=== PATIENT | female | born 1940 | race Caucasian/White ===

== ENCOUNTER 2017-11-29 12:54 | Emergency (ER) | payer MEDICARE, BC ==
--- NOTE | 2017-11-29 13:39 | EDM.PDOC ---
ED HPI GENERAL MEDICAL PROBLEM - General Stated Complaint: RIGHT ARM PAIN Time Seen by Provider: 11/29/17 12:54 Source of Information: Reports: Patient, Family History Limitations: Reports: Altered Mental Status - History of Present Illness INITIAL COMMENTS - FREE TEXT/NARRATIVE: 77 y.o.w.f with H/O Alzheimer dementia, came to the ed due to r and left off and on arm pain. Pt has FROM of all her extremities and does no t specfically say she has pain. Pt's daughters were called to take the pt to the ed for evaluation. Pt does not tappers to be in any discomfort. BP 156/61 Pulse 73 RR 18 Pulse ox 98% on RA Tamp 36.4 Onset Date: 11/29/17 Onset Time: 09:00 Duration: Hour(s): Location: Reports: Upper Extremity, Left, Upper Extremity, Right Quality: Reports: Ache, Burning Severity: Mild Improves with: Reports: Rest - Related Data Allergies Allergy/AdvReac Type Severity Reaction Status Date / Time Sulfa (Sulfonamide Allergy Itching Verified 11/29/17 13:43 Antibiotics) Home Meds: Home Meds Aspirin [Low Dose Aspirin EC] 81 mg PO DAILY 04/09/15 [History] Donepezil [Aricept] 5 mg PO BEDTIME 04/09/15 [History] Gluc 2KCl/Chondr/Yoshi Hy/Hy Ac [Glucosamine & Chondroitin Cap] 1 cap PO DAILY [History] Hydrochlorothiazide 25 mg PO DAILY 04/09/15 [History] Loratadine [Claritin] 10 mg PO DAILY 04/09/15 [History] Losartan Potassium [Cozaar] 50 mg PO BID 04/09/15 [History] Multivitamin [Multivitamins] 1 tab PO DAILY 04/09/15 [History] Bradford-3 Fatty Acids [Fish Oil] 500 mg PO DAILY 04/09/15 [History] Sertraline [Zoloft] 75 mg PO DAILY 04/09/15 [History] amLODIPine [Norvasc] 2.5 mg PO BID 04/09/15 [History] Acetaminophen [Tylenol Extra Strength] 500 mg PO TID 10/03/16 [History] Fluticasone/Salmeterol [Advair 250-50 Diskus] 1 each IH DAILY 10/03/16 [History] Melatonin 1 mg PO DAILY 10/03/16 [History] Vitamin B Complex 1 each PO DAILY 10/03/16 [History] Ciprofloxacin HCl [Cipro] 500 mg PO BID #20 tablet 11/29/17 [Rx] Past Medical History Other Oncologic History: skin CA on vulva - Past Surgical History Other Female Surgeries/Procedures: skin CA removed from vulva Social & Family History - Tobacco Use Smoking Status *Q: Never Smoker Second Hand Smoke Exposure: No - Caffeine Use Caffeine Use: Reports: Coffee - Alcohol Use Days Per Week of Alcohol Use: 0 - Recreational Drug Use Recreational Drug Use: No - Living Situation & Occupation Living situation: Reports: ED ROS GENERAL - Review of Systems Review Of Systems: Unable To Obtain (H/O alzheimer's dementia) ED EXAM, GENERAL - Physical Exam Exam: See Below Exam Limited By: Altered Mental Status General Appearance: Alert, WD/WN, No Apparent Distress Eye Exam: Bilateral Eye: Normal Inspection Ears: Normal External Exam, Normal Canal Ear Exam: Bilateral Ear: Auricle Normal Nose: Normal Inspection, Normal Mucosa Throat/Mouth: Normal Inspection, Normal Lips Head: Atraumatic, Normocephalic Neck: Normal Inspection, Supple, Non-Tender Respiratory/Chest: No Respiratory Distress, Lungs Clear, Normal Breath Sounds, No Accessory Muscle Use Cardiovascular: Normal Peripheral Pulses, Regular Rate, Rhythm, No Edema, No Gallop Peripheral Pulses: 1+: Radial (R) GI/Abdominal: Normal Bowel Sounds, Soft, Non-Tender (Female) Exam: Deferred Rectal (Female) Exam: Deferred Back Exam: Normal Inspection, Full Range of Motion Extremities: Normal Inspection, Normal Range of Motion, Non-Tender, No Pedal Edema Neurological: Alert, CN II-XII Intact, Abnormal Gait (walks slowly but independent ) Psychiatric: Normal Affect, Depressed Mood Skin Exam: Warm, Dry, Intact, Normal Color, No Rash Lymphatic: No Adenopathy EKG INTERPRETATION EKG Date: 11/29/17 Time: 13:45 Rhythm: NSR Rate (Beats/Min): 65 [place]: LAD-Left [place] Deviation P-Wave: Present QRS: Normal ST-T: Normal QT: Normal Comparison: No Change Course - Vital Signs Text/Narrative:: 77 y.o.w.f with H/O Alzheimer dementia, came to the ed due to r and left off and on arm pain. Pt has FROM of all her extremities and does no t specfically say she has pain. Pt's daughters were called to take the pt to the ed for evaluation. Pt does not tappers to be in any discomfort. BP 156/61 Pulse 73 RR 18 Pulse ox 98% on RA Temp 36.4 PE: WNWD W F with dementia Labs: NL WBC K 3.2 Na 143 GFR > 60 Cr 0.7 BUN 15 Impression: Hypokalemia, UTI, Dehydration Tx: Potassium, Cipro UCx is pending Reexam: improved Plan: D/c with instructions Last Recorded V/S: Last Vital Signs Temp 36.4 C 11/29/17 12:54 Pulse 69 11/29/17 15:23 Resp 18 11/29/17 15:23 BP 155/61 H 11/29/17 15:23 Pulse Ox 99 11/29/17 15:23 - Orders/Labs/Meds Orders: Active Orders 24 hr Category Date Time Status EKG Documentation Completion [RC] ASDIRECTED Care 11/29/17 13:38 Active CULTURE URINE [RM] Stat Lab 11/29/17 14:49 Ordered EKG 12 Lead [EK] Routine Ther 11/29/17 13:37 Ordered Labs: Laboratory Tests 11/29/17 11/29/17 11/29/17 Range/Units 13:35 13:35 13:35 WBC 5.4 (4.5-12.0) X10-3/uL RBC 4.07 (3.23-5.20) x10(6)uL Hgb 12.9 (11.5-15.5) g/dL Hct 38.0 (30.0-51.3) % MCV 93.4 (80-96) fL MCH 31.7 (27.7-33.6) pg MCHC 33.9 (32.2-35.4) g/dL RDW 12.6 (11.5-15.5) % Plt Count 305 (125-369) X10(3)uL MPV 7.3 L (7.4-10.4) fL Neut % (Auto) 59.1 (46-82) % Lymph % (Auto) 30.4 (13-37) % [place] % (Auto) 8.2 (4-12) % Eos % (Auto) 2 (1.0-5.0) % Baso % (Auto) 1 (0-2) % Neut # (Auto) 3.3 (1.6-8.3) # Lymph # (Auto) 1.6 (0.6-5.0) # [place] # (Auto) 0.4 (0.0-1.3) # Eos # (Auto) 0.1 (0.0-0.8) # Baso # (Auto) 0.0 (0.0-0.2) # PT 10.7 (8.7-11.1) INR 1.06 (0.89-1.13) Sodium 143 (135-145) mmol/L Potassium 3.2 L (3.5-5.3) mmol/L Chloride 103 (100-110) mmol/L Carbon Dioxide 31 (21-32) mmol/L BUN 15 (7-18) mg/dL Creatinine 0.7 (0.55-1.02) mg/dL Est Cr Clr Drug Dosing TNP Estimated GFR (MDRD) > 60 (>60) BUN/Creatinine Ratio 21.4 H (9-20) Glucose 116 (80-116) mg/dL Calcium 9.6 (8.6-10.2) mg/dL Troponin I (<0.017-0.056) ng/mL Urine Color (YELLOW) Urine Appearance (CLEAR) Urine pH (5.0-6.5) Ur Specific [place] (1.010-1.025) Urine Protein (NEGATIVE) mg/dL Urine Glucose (UA) (NEGATIVE) mg/dL Urine Ketones (NEGATIVE) mg/dL Urine Occult Blood (NEGATIVE) Urine Nitrite (NEGATIVE) Urine Bilirubin (NEGATIVE) Urine Urobilinogen (NEGATIVE) mg/dL Ur Leukocyte Esterase (NEGATIVE) Urine RBC (0) Urine WBC (0) Ur Squamous Epith Cells (NS,R,O) Urine Bacteria (NS) 11/29/17 11/29/17 Range/Units 13:35 14:30 WBC (4.5-12.0) X10-3/uL RBC (3.23-5.20) x10(6)uL Hgb (11.5-15.5) g/dL Hct (30.0-51.3) % MCV (80-96) fL MCH (27.7-33.6) pg MCHC (32.2-35.4) g/dL RDW (11.5-15.5) % Plt Count (125-369) X10(3)uL MPV (7.4-10.4) fL Neut % (Auto) (46-82) % Lymph % (Auto) (13-37) % [place] % (Auto) (4-12) % Eos % (Auto) (1.0-5.0) % Baso % (Auto) (0-2) % Neut # (Auto) (1.6-8.3) # Lymph # (Auto) (0.6-5.0) # [place] # (Auto) (0.0-1.3) # Eos # (Auto) (0.0-0.8) # Baso # (Auto) (0.0-0.2) # PT (8.7-11.1) INR (0.89-1.13) Sodium (135-145) mmol/L Potassium (3.5-5.3) mmol/L Chloride (100-110) mmol/L Carbon Dioxide (21-32) mmol/L BUN (7-18) mg/dL Creatinine (0.55-1.02) mg/dL Est Cr Clr Drug Dosing Estimated GFR (MDRD) (>60) BUN/Creatinine Ratio (9-20) Glucose (80-116) mg/dL Calcium (8.6-10.2) mg/dL Troponin I < 0.017 L (<0.017-0.056) ng/mL Urine Color Yellow (YELLOW) Urine Appearance Clear (CLEAR) Urine pH 6.0 (5.0-6.5) Ur Specific [place] 1.015 (1.010-1.025) Urine Protein Negative (NEGATIVE) mg/dL Urine Glucose (UA) Normal (NEGATIVE) mg/dL Urine Ketones Negative (NEGATIVE) mg/dL Urine Occult Blood Negative (NEGATIVE) Urine Nitrite Negative (NEGATIVE) Urine Bilirubin Negative (NEGATIVE) Urine Urobilinogen Normal (NEGATIVE) mg/dL Ur Leukocyte Esterase Large H (NEGATIVE) Urine RBC 0-5 (0) Urine WBC 10-20 H (0) Ur Squamous Epith Cells Occasional (NS,R,O) Urine Bacteria Few H (NS) Meds: Medications Discontinued Medications Generic Name Dose Route Start Last Admin Trade Name Freq PRN Reason Stop Dose Admin Ciprofloxacin 500 mg 11/29/17 14:55 11/29/17 15:04 Ciprofloxacin Hcl PO 11/29/17 14:56 500 mg ONETIME STA Administration Potassium Chloride 40 meq 11/29/17 14:23 11/29/17 15:04 Klor-Con M20 PO 11/29/17 14:24 40 meq ONETIME ONE Administration Departure - Departure Time of Disposition: 14:59 Disposition: Home, Self-Care 01 Condition: Good Clinical Impression: Hypokalemia UTI (urinary tract infection) Qualifiers: Urinary tract infection type: acute cystitis Hematuria presence: without hematuria Qualified Code(s): N30.00 - Acute cystitis without hematuria Prescriptions: Ciprofloxacin HCl [Cipro] 500 mg PO BID #20 tablet Instructions: Hypokalemia, Urinary Tract Infection, Adult Referrals: Jordan Arrington MD [Primary Care Provider] - Forms: ED Department Discharge Additional Instructions: Please take cipro as recommended, please increase water intake. Potassium level check in 3 days. Please f/u, come back if your symptoms are getting worse. - My Orders Last 24 Hours: My Active Orders 11/29/17 13:37 EKG 12 Lead [EK] Routine 11/29/17 13:38 EKG Documentation Completion [RC] ASDIRECTED 11/29/17 14:49 CULTURE URINE [RM] Stat - Assessment/Plan Last 24 Hours: My Active Orders 11/29/17 13:37 EKG 12 Lead [EK] Routine 11/29/17 13:38 EKG Documentation Completion [RC] ASDIRECTED 11/29/17 14:49 CULTURE URINE [RM] Stat
[2017-11-29] MEDS ORDERED: Potassium Chloride 20 MEQ Tab.ER PO ONE (14:23)
[2017-11-29] MEDS ORDERED: Ciprofloxacin 500 MG Tab PO STA (14:55)
[2017-11-29 15:24] VITALS: BP 155/61
== END 2017-11-29 15:23 | disposition home or self-care (01) ==
LOC: FB.ED 12:54
DX: E87.6 Hypokalemia (principal); E86.0 Dehydration; N30.00 Acute cystitis without hematuria; Z79.82 Long term (current) use of aspirin; Z79.899 Other long term (current) drug therapy; Z88.2 Allergy status to sulfonamides
CPT/HCPCS: 36415; 80048; 81001; 84484; 85025; 85610; 87086; 93005; 99284; A9270; 93010

== ENCOUNTER 2018-02-28 11:51 | Emergency (ER) | payer MEDICARE, BC ==
[2018-02-28] MEDS ORDERED: Sodium Chloride 0.9% 1,000 ML IV ONE (13:13)
[2018-02-28] MEDS ORDERED: Potassium Chloride 10% 20 MEQ/15 ML Soln 15 ML UD Cup PO ONE (13:14)
[2018-02-28 15:19] VITALS: BP 122/51
--- NOTE | 2018-03-01 05:24 | ER ---
DATE SEEN: 02/28/2018 TIME SEEN: The patient was seen at 1200 hours. /[id number] RAVIN/HAMLET
--- NOTE | 2018-03-01 11:24 | ER ---
DATE SEEN: 02/28/2018 HISTORY OF PRESENT ILLNESS: This 78-year-old [facility] patient, whose has been for 5-plus years, has had 5 days of nausea, vomiting, and diarrhea with mild blood noted in her stool today. She is a poor historian and cannot tell us anything. Her daughter notes that she has not had any fever or cough. She has had her influenza shots. She has had urinary tract infections in the past. Intermittently is agitated. PAST MEDICAL HISTORY: Hypertension; COPD, she uses LABA with inhaled steroid- Advair 250/50 Diskus; has depression. CURRENT MEDICATIONS: 1. Amlodipine. 2. Vitamin B. 3. Zoloft. 4. Romay[place] fatty acids. 5. Multivitamins. 6. Melatonin. 7. Losartan. 8. Claritin. 9. Hydrochlorothiazide. 10.Glucosamine and chondroitin. 11.Fluticasone. 12.Salmeterol. 13.Donepezil. 14.Ciprofloxacin, not dated. 15.Aspirin. 16.Acetaminophen. ALLERGIES: Sulfa causes itching. REVIEW OF SYSTEMS: Unable to obtain, except from the daughter. Nothing new has occurred, except the GI symptoms she notes above. The patient is a very poor historian and just looks and stares at me. When asked to sit forward, she starts striking at me and was gently restrained. PHYSICAL EXAMINATION: VITAL SIGNS: 120/58, heart rate 72, respirations 17, mean arterial blood pressure 78, and oxygen saturation 100% on room air. 64.4 kg and 26.0 kg/m2 BMI. GENERAL: When she wants to shut the world out, closes her eyes, but when she wakes up, she wants to be total control and starts striking out at me and the nurses and has a vigorous controlled scowl. HEENT: Pharynx without abnormalities. Mucosa semi-moist. Tongue is slightly enlarged. TMs negative. Eyegrounds normal appearance. NECK: No thyromegaly, masses in neck, cervical adenopathy, or bruits. LUNGS: Clear without rales, rhonchi, or wheezes. HEART: S1, S2. No irregular rate or rhythm. ABDOMEN: Soft. No guarding. No abdominal discomfort. Bowel sounds slightly increased. Perianal area not inspected because of her combative nature. MUSCULOSKELETAL: Deep tendon reflexes 1+ to 2+ in bilateral upper and lower extremities. No asymmetry. NEUROLOGIC: Cranial nerves 2 through 12 intact. Muscle strength very good. She has good upper and lower muscle strength and can walk. LABORATORY FINDINGS: White count is normal at 5500, PMNs normal at 62, lymphocytes 21, monos 12, hemoglobin 11.6, and platelets 235,000. Abnormal complete metabolic panel; sodium slightly elevated at 146, potassium 3.4-low, BUN 34, creatinine 0.7, BUN creatinine ratio 48.6-dehydrated. Urine cath specimen. The patient has moderate urine bacteria, few squamous, many mucus, small bilirubin, and specific gravity of 1.025. ASSESSMENT: 1. Dehydration secondary to enteritis. Doubt influenza A or B since she has had her shots. 2. Mild dehydration. 3. Dense dementia, can be combative intermittently when aroused. 4. Hematochezia history secondary to stooling. 5. Hypertension. 6. Chronic obstructive lung disease. 7. Depression. PLAN: The patient received 1000 mL of normal saline. Urine culture is pending. I do not plan to treat her urine as the [place] [employer] recommends not treating asymptomatic bacteria. Follow up with her doctor as needed. Push fluids. The patient received 1000 mL of normal saline flush. Stool culture. Attempted to place IV. IV was placed and is in good position; however, she moved her arm, just jerked it, and pulled it right out. Return to [facility] Care Unit at [facility]. Follow up with her doctor in a week if not improved or earlier if worse. No plans to treat any urinary abnormality as there is a cath specimen, and she has had asymptomatic bacteria. OTHER DIAGNOSES: 1. Hypokalemia. The patient received 40 mEq of potassium chloride. 2. Dehydration. Received 1000 mL of normal saline flush. /[id number] RAVIN/HAMLET
--- NOTE | 2018-03-02 13:50 | CR ---
INDICATION: Confused. CHEST: An AP upright portable view of the chest was obtained 02/28/2018 and compared with 04/09/2015, revealing the heart to be somewhat enlarged, the aorta tortuous with calcification in the arch and possibly descending portion. A definite active infiltrate or effusion was not identified. Dextroconvex scoliosis of the lower thoracic spine of mild to moderate degree is noted. Overlying metallic density is noted, apparently on clothes. IMPRESSION: 1. No acute process. 2. ASHD. MTDD
== END 2018-02-28 15:15 | disposition home or self-care (01) ==
LOC: FB.ED 11:51
DX: K52.9 Noninfective gastroenteritis and colitis, unspecified (principal); E86.0 Dehydration; E87.6 Hypokalemia; K92.1 Melena; F03.90 Unspecified dementia, unspecified severity, without behavioral disturbance, psychotic disturbance, mood disturbance, and anxiety; F32.9 Major depressive disorder, single episode, unspecified; I10 Essential (primary) hypertension; J44.9 Chronic obstructive pulmonary disease, unspecified; Z88.2 Allergy status to sulfonamides; Z79.82 Long term (current) use of aspirin; Z79.899 Other long term (current) drug therapy
CPT/HCPCS: 36415; 71045; 80053; 81001; 84484; 85025; 87086; 93005; 96360; 99284; A9270; J7040